=== PATIENT | female | born 1990 | race Caucasian/White ===

== ENCOUNTER 2018-12-17 22:34 | Emergency (ER) ==
[~2018-12-17] VITALS: Ht 165.1 cm; Wt 126.8 kg
[2018-12-19] MEDS ORDERED: FLAGYL500 MG PO (01:21)
== END 2018-12-18 01:22 | disposition left against medical advice (07) ==
LOC: COL.ER 22:34
DX: N89.8 Other specified noninflammatory disorders of vagina (principal)

== ENCOUNTER 2018-12-18 23:06 | Emergency (ER) | payer MEDICAID ==
[~2018-12-18] VITALS: Ht 165.1 cm; Wt 126.8 kg
[2018-12-18 23:09] VITALS: BP 166/84; TEMP 97.3
[2018-12-19] MEDS ORDERED: FLAGYL500 MG PO (01:21)
[2018-12-19 02:18] VITALS: PULSE 82
== END 2018-12-19 02:20 | disposition home or self-care (01) ==
LOC: COL.ER 23:06
DX: N76.0 Acute vaginitis (principal); B96.89 Other specified bacterial agents as the cause of diseases classified elsewhere; Z90.710 Acquired absence of both cervix and uterus

== ENCOUNTER 2019-01-29 10:25 | Emergency (ER) | payer MEDICAID ==
[~2019-01-29] VITALS: Ht 165.1 cm; Wt 125.9 kg
[~2019-01-29 10:25] MED LIST: FLAGYL500 MG PO
[2019-01-29 10:28] VITALS: TEMP 98.5
[2019-01-29 10:39] LABS: COLLECTION METHOD CLEAN CATCH
[2019-01-29 10:47] LABS: MUCOUS Present /lpf; PH 5 (5-8); URINE APPEARANCE Hazy; URINE BACTERIA None Seen /hpf; URINE BILIRUBIN Negative (NEGATIVE); URINE BLOOD Negative (NEGATIVE); URINE COLOR Yellow; URINE GLUCOSE Negative (NEGATIVE); URINE KETONE Negative (NEGATIVE); URINE LEUKOCYTE ESTERASE 2+ (NEGATIVE); URINE NITRATE Negative (NEGATIVE); URINE PROTEIN(semi-quant) Negative (NEGATIVE); URINE UROBILINOGEN Negative (NEGATIVE)
[2019-01-29] MEDS ORDERED: CEPHALEXIN500 M1 PO (11:44)
[2019-01-29] MEDS ORDERED: LIDODERM 5% PATC1 EA TP (11:44)
[2019-01-29 12:11] VITALS: BP 125/71; PULSE 84
== END 2019-01-29 12:12 | disposition home or self-care (01) ==
LOC: COL.ER 10:25
PROVIDERS: Physician Assistant
DX: N39.0 Urinary tract infection, site not specified (principal)

== ENCOUNTER 2019-02-13 19:20 | Emergency (ER) | payer MEDICAID ==
[~2019-02-13] VITALS: Ht 165.1 cm; Wt 127.3 kg
[~2019-02-13 19:20] MED LIST changes: +CEPHALEXIN500 M1 PO; +LIDODERM 5% PATC1 EA TP
[2019-02-13 19:23] VITALS: BP 131/82; TEMP 98.5
[2019-02-13 19:46] VITALS: PULSE 82
== END 2019-02-13 19:47 | disposition home or self-care (01) ==
LOC: COL.ER 19:20
DX: H00.014 Hordeolum externum left upper eyelid (principal)

== ENCOUNTER 2020-02-14 10:24 | Emergency (ER) | payer MEDICAID ==
[~2020-02-14] VITALS: Ht 165.1 cm; Wt 130.9 kg
[2020-02-14 12:27] LABS: BASO # 0.1 (0.0-0.2); BASO % 0.5 % (0.0-2.0); EOS # 0.2 (0.0-0.7); EOS % 1.9 % (0-4.0); GRAN % 62.7 % (42.2-75.2); HEMATOCRIT 37.7 % (37.0-47.0); HEMOGLOBIN 12.4 g/dl (12.5-16.0); LYMPH # 2.7 (1.2-3.4); LYMPH % 27.6 % (20.0-51.0); MEAN CELL VOLUME 77 fl (80.0-100.0); MEAN CORPUSCULAR HEMOGLOBIN 26 pg (27.0-31.0); MEAN CORPUSCULAR HGB CONC 33 g/dl (33.0-37.0); MEAN PLATELET VOLUME 10.8 fl (7.4-10.4); MONO # 0.7 (0.1-0.6); PLATELET COUNT 243 K/mm3 (130-400); RED BLOOD COUNT 4.87 M/mm3 (4.10-5.30); REDCELL DISTRIBUTION WIDTH-CV 12.9 % (11.5-14.5)
[2020-02-14 12:43] LABS: ALBUMIN 3.9 gm/dL (3.5-5.0); BILIRUBIN,TOTAL 0.3 mg/dL (0.0-1.0); C-REACTIVE PROTEIN 0.9 mg/dL (0.0-0.9); CALCIUM 8.8 mg/dL (8.4-10.2); CREATININE, serum 0.58 (0.52-1.25); POTASSIUM 4.3 mmol/L (3.4-5.0); TOTAL PROTEIN 7.1 gm/dL (6.4-8.2)
[2020-02-14 12:44] LABS: COLLECTION METHOD CLEAN CATCH
[2020-02-14 13:01] LABS: MUCOUS Present /lpf; PH 5 (5-8); SQUAMOUS EPITHELIAL 0-2 /hpf; URINE APPEARANCE Clear; URINE BACTERIA None Seen /hpf; URINE BILIRUBIN Negative (NEGATIVE); URINE BLOOD Negative (NEGATIVE); URINE COLOR Yellow; URINE GLUCOSE Negative (NEGATIVE); URINE KETONE Negative (NEGATIVE); URINE LEUKOCYTE ESTERASE Negative (NEGATIVE); URINE NITRATE Negative (NEGATIVE); URINE PROTEIN(semi-quant) Negative (NEGATIVE); URINE RBC None Seen /hpf; URINE UROBILINOGEN Negative (NEGATIVE)
[2020-02-14 14:00] VITALS: BP 137/81; PULSE 70; TEMP 98.9
== END 2020-02-14 14:02 | disposition home or self-care (01) ==
LOC: COL.ER 10:24
PROVIDERS: Physician Assistant
DX: K52.9 Noninfective gastroenteritis and colitis, unspecified (principal); Z90.710 Acquired absence of both cervix and uterus

== ENCOUNTER 2020-07-01 08:00 | Outpatient (RCR) | payer MEDICAID ==
[~2020-07-01 08:00] MED LIST changes: +AMOXICILLIN 8751 TAB PO; +ULTRAM 50MG TAB50 MG PO
== END 2020-08-12 14:01 | disposition home or self-care (01) ==
LOC: WSOT 08:00
DX: M79.642 Pain in left hand (principal)

== ENCOUNTER 2020-11-29 11:43 | Emergency (ER) | payer MEDICAID ==
[~2020-11-29] VITALS: Ht 165.1 cm; Wt 125.5 kg
[2020-11-29 11:47] VITALS: BP 121/80; TEMP 97.9
[2020-11-29 12:55] VITALS: PULSE 82
== END 2020-11-29 12:56 | disposition home or self-care (01) ==
LOC: COL.ER 11:43
DX: S61.012A Laceration without foreign body of left thumb without damage to nail, initial encounter (principal); Z90.710 Acquired absence of both cervix and uterus; Z87.891 Personal history of nicotine dependence; W26.9XXA Contact with unspecified sharp object(s), initial encounter; Y93.E5 Activity, floor mopping and cleaning

== ENCOUNTER 2021-08-12 14:24 | Emergency (ER) | payer MEDICAID ==
[~2021-08-12] VITALS: Ht 165.1 cm; Wt 127.3 kg
[2021-08-12 14:43] VITALS: TEMP 97.9
[2021-08-12 16:10] VITALS: BP 130/61; PULSE 80
== END 2021-08-12 16:12 | disposition home or self-care (01) ==
LOC: COL.ER 14:24
DX: S90.31XA Contusion of right foot, initial encounter (principal); S69.92XA Unspecified injury of left wrist, hand and finger(s), initial encounter; X50.1XXA Overexertion from prolonged static or awkward postures, initial encounter

== ENCOUNTER 2021-11-13 11:31 | Emergency (ER) | payer MEDICAID ==
[~2021-11-13] VITALS: Ht 152.4 cm; Wt 127.3 kg
[2021-11-13 11:45] VITALS: TEMP 99.1
[2021-11-13 12:07] LABS: STREP SCREEN NEGATIVE
[2021-11-13 12:31] VITALS: BP 134/86; PULSE 101
== END 2021-11-13 12:35 | disposition home or self-care (01) ==
LOC: COL.ER 11:31
PROVIDERS: Student in an Organized Health Care Education/Training Program
DX: U07.1 COVID-19 (principal)

== ENCOUNTER → 2022-05-31 | Outpatient (CLI) | payer MEDICAID ==
[2022-05-31 09:55] LABS: BASO % 0.3 % (0.0-2.0); EOS # 0.2 K/mm3 (0.0-0.7); EOS % 2.6 % (0.0-4.0); GRAN # 4.3 K/mm3 (1.4-6.5); GRAN % 61.9 % (42.2-75.2); HEMATOCRIT 38.9 % (37.0-47.0); HEMOGLOBIN 12.7 g/dl (12.5-16.0); LYMPH % 29.4 % (20.0-51.0); MEAN CELL VOLUME 79 fl (80.0-100.0); MEAN CORPUSCULAR HEMOGLOBIN 26 pg (27-31); MEAN CORPUSCULAR HGB CONC 33 g/dl (33.0-37.0); MEAN PLATELET VOLUME 10.4 fl (7.4-10.4); MONO # 0.4 K/mm3 (0.1-0.6); MONO % 5.4 % (1.7-9.3); PLATELET COUNT 253 K/mm3 (130-400); RED BLOOD COUNT 4.93 M/mm3 (4.10-5.30); REDCELL DISTRIBUTION WIDTH-CV 13.2 % (11.5-14.5)
[2022-05-31 10:06] LABS: ALBUMIN 3.8 gm/dL (3.5-5.0); BILIRUBIN,TOTAL 0.5 mg/dL (0.2-1.2); CALCIUM 8.9 mg/dL (8.4-10.2); CREATININE, serum 0.76 mg/dL (0.57-1.11); POTASSIUM 4.4 mmol/L (3.5-4.5); TOTAL PROTEIN 6.8 gm/dL (6.2-8.1)
== END ==
LOC: COL.VAS 09:17 → COL.LAB 09:17
PROVIDERS: Registered Nurse
DX: M25.472 Effusion, left ankle (principal); M79.605 Pain in left leg; R79.1 Abnormal coagulation profile; M79.89 Other specified soft tissue disorders

== ENCOUNTER → 2022-06-01 | Outpatient (CLI) | payer MEDICAID | LOC: COL.RAD 10:49 | DX: M48.07 Spinal stenosis, lumbosacral region (principal) ==

== ENCOUNTER 2024-06-05 15:15 | Emergency (ER) | payer MEDICAID ==
[~2024-06-05] VITALS: Ht 165.1 cm; Wt 127.3 kg
[2024-06-05 15:22] VITALS: TEMP 98.5
[2024-06-05 19:33] VITALS: BP 135/72; PULSE 97
== END 2024-06-05 19:36 | disposition home or self-care (01) ==
LOC: COL.ER 15:15
DX: M25.572 Pain in left ankle and joints of left foot (principal)